=== PATIENT | male | born 1945 | race Caucasian/White ===

== ENCOUNTER 2021-10-10 05:40 | Outpatient (CLI) | payer MEDICARE ==
[~2021-10-10] VITALS: Ht 180.3 cm; Wt 89.4 kg
[2021-10-10] MEDS ORDERED: AMLO-250 PO (11:55)
[2021-10-10] MEDS ORDERED: GABA-490 PO (11:55)
== END 2021-10-10 15:52 | disposition home or self-care (01) ==
LOC: PREOP 05:40
PROVIDERS: ATTEND Internal Medicine
DX: Z01.818 Encounter for other preprocedural examination (principal)

== ENCOUNTER → 2021-10-14 | Day surgery (SDC) | payer MEDICARE ==
--- NOTE | 2021-10-07 07:15 | HISTORY AND PHYSICAL ---
DATE OF SERVICE: COLONOSCOPY HISTORY AND PHYSICAL HISTORY OF PRESENT ILLNESS: The patient is a 76-year-old white male, referred by Dr. Galan for screening colonoscopy. He does report one other colonoscopy that was a lot longer than 10 years ago per his report. He does not recall if there are any problems with it. He does report intermittent bright red blood per rectum. He did have one heavy about the beginning of September. He thought it was related to gabapentin, which had been initiated for herpes zoster related pain that involves the right side of his forehead. He denied any vision problems with the medication. He is still having some postherpetic neuralgia. No other reported complications. He denies abdominal pain, change in weight or change in bowel habit. He denies any pain associated with usually smaller volume bright red blood that he reports has been intermittent for the last year. He is not aware of any family history for colon cancer. PAST MEDICAL HISTORY: Significant for recent herpes zoster and hypertension. He was recently started on amlodipine 5 mg daily. Other medications include gabapentin unknown dose daily. He is not taking any aspirin or nonsteroidal medication. PAST SURGICAL HISTORY: He reports no past surgeries. SOCIAL HISTORY: He is a retired journeyman electrician, [id number] smoking history, quit over 10 years ago. Reports occasional moderate alcohol consumption. FAMILY HISTORY: His mother had what he believes is thyroid cancer, did not seek medical treatment for it and due to complications around the age of 70. Father had history of heart disease, unspecified type with arrhythmia, at the age of 85. REVIEW OF SYSTEMS: CONSTITUTIONAL: The patient denies night sweats, chills, fever, change in weight. He is fully vaccinated for COVID. GASTROINTESTINAL: As noted in the HPI. CARDIOVASCULAR: The patient denies chest pain, dyspnea on exertion, orthopnea, PND or pedal edema. PULMONARY: The patient denies cough, wheezing or hemoptysis. PHYSICAL EXAMINATION: GENERAL: Reveals a white male, appeared to be in no acute distress. HEENT: Unremarkable. Sclerae nonicteric. No evidence for pallor. CHEST: Clear. CARDIOVASCULAR: Reveals a regular rate and rhythm without murmur, S3 or S4. ABDOMEN: Soft, supple without mass, organomegaly or tenderness. EXTREMITIES: Reveal no cyanosis, clubbing or edema. ASSESSMENT AND PLAN: The patient is being set up for a screening colonoscopy on 10/14/2021. Prep instructions with the Suprep kit were given and questions were answered. I thank you for the referral of this pleasant gentleman. Job ID: [id number] DocumentID: [id number] Dictated Date: 10/05/2021 16:48:38 Hopper Filler Date: 10/05/2021 17:56:42 Dictated By: WILLIAN SUMNER MD MTDD
[~2021-10-14] VITALS: Ht 180 cm; Wt 89.0 kg
[~2021-10-14] MED LIST: AMLO-250 PO; GABA-490 PO; LACTATED RINGERS 1,000 ML IV ONE; LACTATED RINGERS 1,000 ML IV STA; LIDOCAINE JELLY 2% 6 ML SYRINGE MM PRN; MIDAZOLAM 2 MG/2 ML (VERSED) VIAL ONE; PROPOFOL INJECTION 50 ML IV ONE
[2021-10-14 08:45] VITALS: BP 157/86
--- NOTE | 2021-10-14 09:21 | Pre-Op Note & Conscious Sedat ---
Pre-Operative Progress Note H&P Reviewed The H&P was reviewed, patient examined and no changes noted. Date H&P Reviewed: Oct 14, 2021 Time H&P Reviewed: 09:21 Conscious Sedation Pre-Proced ASA Score 2 For ASA 3 and 4: Consider anesthesia and medical clearance. Also, for patients with a history of failed moderate sedation consider anesthesia. Airway Lungs Heart ASA score ASA 1: a normal healthy patient ASA 2: a patient with a mild systemic disease (mid diabetes, controlled hypertension, obesity ASA 3: a patient with a severe systemic disease that limits activity (angina, COPD, prior Myocardial infarction) ASA 4: a patient with an incapacitating disease that is a constant threat to life (CHF, renal failure) ASA 5: a moribund patient not expected to survive 24 hrs. (ruptured aneurysm) ASA 6: a declared brain- patient whose organs are being harvested. For emergent operations, add the letter E after the classification Mallampati Classification Grade 2 Sedation Plan Analgesia, Amnesia, Plan communicated to team members, Discussed options with patient/fam, Discussed risks with patient/fam The patient is an appropriate candidate to undergo the planned procedure, sedation, and anesthesia. The patient immediately re-assessed prior to indication. WILLIAN SUMNER MD Oct 14, 2021 09:21
[2021-10-14 10:30] VITALS: BP 121/61
[2021-10-14 10:35] VITALS: BP 123/64
[2021-10-14 10:40] VITALS: BP 128/67
[2021-10-14 11:10] VITALS: BP 147/78
--- NOTE | 2021-10-14 11:55 | Anesthesia-General Post-Op ---
MAC Patient Condition Mental Status/LOC: Same as Preop Cardiovascular: Satisfactory Nausea/Vomiting: Absent Respiratory: Satisfactory Pain: Controlled Complications: Absent Post Op Complications Complications None Follow Up Care/Instructions Patient Instructions None needed. Anesthesiology Discharge Order Discharge Order Patient is doing well, no complaints, stable vital signs, no apparent adverse anesthesia problems. No complications reported per nursing. GWENDOLYN DALY CRNA Oct 14, 2021 11:55
--- NOTE | 2021-10-14 19:00 | OPERATIVE REPORT ---
DATE OF SERVICE: COLONOSCOPY SUMMARY INDICATION FOR THE PROCEDURE: Screening. DESCRIPTION OF PROCEDURE: The patient was placed in the left lateral decubitus position. Prior to having colonoscopy, digital rectal evaluation was performed. Anal sphincter tone was normal and the perianal reflexes intact. The prostate was moderately enlarged and anodular on digital inspection. No other abnormalities were noted on digital inspection of anal canal or distal rectal vault. The colonoscope was then inserted into the rectum and under direct visualization advanced to cecum. The cecum was identified by the ileocecal valve and cecal strap. Photographic documentation was obtained. Quality of prep was good. FINDINGS: There was no evidence for internal or external hemorrhoids and the rectum was unremarkable. Mild to moderate diverticular disease is present predominantly noted in the sigmoid colon without evidence for diverticulitis. No other sigmoid colonic abnormalities were appreciated. The descending colon and splenic flexure were unremarkable. Present in the proximal transverse colon was diminutive 3 mm sessile polyp was biopsied and ablated and submitted for histopathology with no significant blood loss. The hepatic flexure, ascending colon, and cecum were normal. ASSESSMENT: One diminutive polyp was removed from the proximal transverse colon via hot biopsy forceps. Mild diverticular disease predominantly noted in the sigmoid colon that was present without evidence for diverticulitis. The prostate was moderately enlarged and anodular on digital inspection. As long as there are no surprise on histopathology report, considering age, would not advocate future screening colonoscopy. I thank you for the referral of this pleasant gentleman. Job ID: [id number] DocumentID: [id number] Dictated Date: 10/14/2021 10:31:40 Wood Grainer Date: 10/14/2021 14:50:12 Dictated By: WILLIAN SUMNER MD
== END ==
LOC: ENDO 08:21
PROVIDERS: ATTEND Internal Medicine
DX: Z12.11 Encounter for screening for malignant neoplasm of colon (principal); K63.5 Polyp of colon; K57.30 Diverticulosis of large intestine without perforation or abscess without bleeding; I10 Essential (primary) hypertension; Z79.899 Other long term (current) drug therapy; Z87.891 Personal history of nicotine dependence; Z80.8 Family history of malignant neoplasm of other organs or systems
CPT/HCPCS: 88305